=== PATIENT | female | born 1990 ===

== ENCOUNTER 2018-03-26 21:43 | Emergency (ER) | payer OTHER ==
[2018-03-26 21:49] VITALS: BP 137/77; PULSE 87; RESP 18; TEMP 98.6
--- NOTE | 2018-03-26 22:49 | ED ---
Lower Extremity Injury HPI - General Chief Complaint: Extremity Injury, Lower Stated Complaint: Knee Injury Time Seen by Provider: 03/26/18 21:54 Source: EMS, RN notes reviewed, old records reviewed Mode of arrival: EMS Limitations: no limitations - History of Present Illness Initial Comments: Patient is a 27 year old female with CC of L knee pain while playing on playground equipment with son. She reports she was on a piece of equipment, and her L knee gave out and instantly swelled.Denies any head injury. Denies any otherinjury related to fall. She does report hisotry of L knee pain and sprains in years past. - Related Data Previous Rx's Medication Instructions Recorded Ibuprofen [Motrin] 600 mg PO Q8HR PRN #20 tab 03/26/18 Allergies Allergy/AdvReac Type Severity Reaction Status Date / Time No Known Allergies Allergy Verified 03/26/18 21:49 Review of Systems ROS Statement: Those systems with pertinent positive or pertinent negative responses have been documented in the HPI. ROS Other: All systems not noted in ROS Statement are negative. Past Medical History Additional Past Medical History / Comment(s): Kidney stones. pseudo tumors. PCOS. Endometriosis History of Any Multi-Drug Resistant Organisms: None Reported Past Surgical History: Tubal Ligation Past Psychological History: No Psychological Hx Reported Smoking Status: Never smoker Past Alcohol Use History: None Reported Past Drug Use History: Marijuana General Exam - General Exam Comments Initial Comments: This is a 27 year old female, no distress. Limitations: no limitations General appearance: alert, in no apparent distress Head exam: Present: atraumatic Eye exam: Present: normal appearance, PERRL, EOMI. Absent: scleral icterus, conjunctival injection, periorbital swelling ENT exam: Present: normal exam, mucous membranes moist Neck exam: Present: normal inspection. Absent: tenderness, meningismus, lymphadenopathy Respiratory exam: Present: normal lung sounds bilaterally. Absent: respiratory distress, wheezes, rales, rhonchi, stridor Cardiovascular Exam: Present: regular rate, normal rhythm, normal heart sounds. Absent: systolic murmur, diastolic murmur, rubs, gallop, clicks Extremities exam: Present: normal inspection, full ROM, normal capillary refill. Absent: tenderness, pedal edema, joint swelling, calf tenderness Left Upper Leg exam: Present: normal inspection, full ROM Knee exam: Present: normal inspection, tenderness, swelling (Patient has tenderness and swelling over MCL And LCL ), crepitus. Absent: full ROM Lower Leg exam: Present: normal inspection, full ROM Ankle exam: Present: normal inspection Neurovascular tendon exam: Present: no vascular compromise Gait: observed and normal Back exam: Present: normal inspection Neurological exam: Present: alert, oriented X3, CN II-XII intact Psychiatric exam: Present: normal affect, normal mood Skin exam: Present: warm, dry, intact, normal color. Absent: rash Course Vital Signs 03/26/18 21:45 Temperature 98.6 F Pulse Rate 87 Respiratory 18 Rate Blood Pressure 137/77 O2 Sat by Pulse 99 Oximetry Procedures - Orthopedic Splinting/Casting Injury #1 Side: left Lower Extremity Injury Location: knee Lower Extremity Immobilizer: knee immobilizer Other Orthopedic Equipment: crutches Medical Decision Making - Medical Decision Making 27 year old female with L knee sprain on playground. Patient was playing with her son. Patient has crepitus on exam, and swelling onted She is able to bear weight. Patient xray of knee are normal. Discussed she may need MRI. Placed in a knee immobizizer and follow up with ortho. - Radiology Data Radiology results: report reviewed Normal L Knee exam. Disposition Clinical Impression: Left knee sprain Disposition: HOME SELF-CARE Condition: Good Instructions: Knee Sprain (ED) Additional Instructions: Patient is to follow-up with placement specialist. Take anti-inflammatory medicine and wear the knee immobilizer. Return to emergency department if any alarming signs or symptoms occur. Prescriptions: Ibuprofen [Motrin] 600 mg PO Q8HR PRN #20 tab PRN Reason: Pain Is patient prescribed a controlled substance at d/c from ED?: No When asked, does pt state using other controlled substances?: No If prescribed controlled substance>3 days was MAPS reviewed?: No If opioid is for acute pain is fill amount 7 days or less?: No If Rx opioid, was Start Talking consent form obtained?: No Referrals: Mary Penaloza MD [STAFF PHYSICIAN] - 1-2 days None,Stated [Primary Care Provider] - 1-2 days Apollo Holden MD [STAFF PHYSICIAN] - 1-2 days Time of Disposition: 22:55
--- NOTE | 2018-03-26 22:53 | XR ---
EXAMINATION TYPE: XR knee complete LT DATE OF EXAM: 03/26/2018 COMPARISON: NONE HISTORY: Knee pain TECHNIQUE: 3 views FINDINGS: I see no fracture nor dislocation. Joint spaces are normal. There is no sign of any joint e ffusion. IMPRESSION: Negative left knee exam
== END 2018-03-26 23:12 | disposition home or self-care (01) ==
LOC: EC 21:43
DX: S83.92XA Sprain of unspecified site of left knee, initial encounter (principal); X50.0XXA Overexertion from strenuous movement or load, initial encounter; Y93.89 Activity, other specified; Y92.89 Other specified places as the place of occurrence of the external cause
CPT/HCPCS: 99284; 73562; L1830